=== PATIENT | female | born 1950 | race Caucasian/White ===

== ENCOUNTER 2020-02-14 10:49 | Outpatient (CLI) | payer MEDICARE, BC, SELFPAY ==
--- NOTE | ~2020-02-14 | XR_ITS ---
XR abdomen/kub 1V 02/14/2020 11:09 INDICATION: Renal stones TECHNIQUE: KUB COMPARISON: None FINDINGS: Bowel gas pattern is normal. Moderate colonic fecal loading. There is no evidence of free a ir, mass, organomegaly, ascites or obstruction. No abnormal calculi are seen. There are pelvic phleb oliths. The bones appear intact. IMPRESSION: 1: No acute abdominal abnormality identified. Reviewed, dictated and finalized at location A.
== END 2020-02-14 10:50 | disposition home or self-care (01) ==
LOC: ANHIMG 10:56
PROVIDERS: Visit Provider Nurse Practitioner Family
DX: Z87.442 Personal history of urinary calculi (principal)
CPT/HCPCS: 74018

== ENCOUNTER 2022-07-31 10:39 | Outpatient (CLI) | payer MEDICARE, BC, SELFPAY ==
--- NOTE | ~2022-07-31 | XR_ITS ---
Supine view of the abdomen Clinical history: Right-sided kidney stone COMPARISON: 02/14/2020 Findings: Bowel gas pattern is nonspecific. No evidence for obstruction or latia e air. No abnormal mass lesion or calcification is seen. Pelvic phleboliths appear unchanged. Osseous structures are intact. Impression: No significant abnormality is seen. Reviewed, dictated and finalized at [facility]. Impression: No significant abnormality is seen.
== END 2022-07-31 10:40 | disposition home or self-care (01) ==
LOC: ANHIMG 10:45
PROVIDERS: Visit Provider Nurse Practitioner Family
DX: N20.0 Calculus of kidney (principal)
CPT/HCPCS: 74018

== ENCOUNTER 2023-07-16 10:09 | Outpatient (CLI) | payer MEDICARE, BC, SELFPAY ==
--- NOTE | ~2023-07-16 | XR_ITS ---
XR abdomen/kub 1V 07/16/2023 10:28 INDICATION: Left renal stones TECHNIQUE: KUB COMPARISON: 07/31/2022 FINDINGS: Bowel gas pattern is normal. There is no evidence of free air, mass, organomegaly, ascites or obstruction. No abnormal calculi are seen. The bones appear intact. There are pelvic phlebolith s. IMPRESSION: 1: No acute abdominal abnormality identified. Reviewed, dictated and finalized at location L.
== END 2023-07-16 10:10 | disposition home or self-care (01) ==
PROVIDERS: Visit Provider Urology
DX: N20.0 Calculus of kidney (principal); Z87.442 Personal history of urinary calculi
CPT/HCPCS: 74018